=== PATIENT | male | born 1980 | race Caucasian/White ===

== ENCOUNTER → 2018-07-09 | Outpatient (CLI) | payer OTHER ==
--- NOTE | 2018-07-09 14:22 | Diagnostic Imaging Report ---
PROCEDURE: MRI lumbar spine. TECHNIQUE: Multiplanar, multisequence MRI of the lumbar spine was performed without contrast. INDICATION: Low back pain and bilateral leg pain, left greater. Comparison is made with prior MRI of the lumbar spine from 08/15/2015. Straightening of the normal lumbar lordotic curvature is again noted. Minimal retrolisthesis of L5 on S1 is similar to prior study. Vertebral body heights are maintained. No acute compression fracture or geographic marrow lesion is seen. Loss of height and signal intensity to the lumbar disc at L5-S1 is similar to prior study. Decompression laminectomy at this level is also seen. Previously noted sacral cyst, only partially included on this study appears similar. The conus is unremarkable at the L1 level. T12-L1: Central canal and neural foramina are widely patent. L1-L2: There are some degenerative facet changes, however, the central canal and neural foramina appear to be widely patent. L2-L3: Degenerative facet changes are noted. Central canal is widely patent. The neural foramina are patent. L3-L4: Broad-based disc/osteophyte complex produces some flattening of the ventral thecal sac. This does result in some narrowing of the canal with AP dimensions of the sac of approximately 8 mm. The neural foramina are patent. L4-L5: Degenerative facet changes are noted. There is flattening of the ventral thecal sac due to annular bulging. This does create narrowing of the central canal. There is narrowing of bilateral lateral recesses. No significant neural foraminal stenosis is seen. L5-S1: Facet changes are noted. Postsurgical changes of hemilaminectomy are seen. Broad-based disc/osteophyte complex is noted. Degree of disc bulging is significantly improved since prior MRI. There is mild neural foramina narrowing bilaterally and lateral recess narrowing due to endplate osteophytes. Paraspinous tissues are unremarkable. IMPRESSION: Lumbar spondylosis with mild central canal and neuroforaminal narrowing described level by level above. There are postop changes at L5-S1. No acute compression fracture is detected. Dictated by: Dictated on workstation # [id number]
== END ==
LOC: RAD 13:06
PROVIDERS: ATTEND Nurse Practitioner Family
DX: M47.817 Spondylosis without myelopathy or radiculopathy, lumbosacral region (principal); M51.27 Other intervertebral disc displacement, lumbosacral region; M48.07 Spinal stenosis, lumbosacral region; M25.78 Osteophyte, vertebrae; M51.37 Other intervertebral disc degeneration, lumbosacral region; M85.68 Other cyst of bone, other site; Z98.890 Other specified postprocedural states
CPT/HCPCS: 72148

== ENCOUNTER → 2021-10-18 | Outpatient (CLI) | payer BC ==
--- NOTE | 2021-10-18 15:56 | Diagnostic Imaging Report ---
PROCEDURE: MRI lumbar spine. TECHNIQUE: Multiplanar, multisequence MRI of the lumbar spine was performed without contrast. INDICATION: Prior history of back surgery in 2014. Chronic low back pain. EXAMINATION:: Lumbar spine MRI without contrast 10/18/2021. COMPARISON: 07/09/2018 FINDINGS: There is minimal grade 1 retrolisthesis at L5-S1 with remaining alignment preserved. Vertebral body heights maintained. Tip of the conus unremarkable in appearance and location. Again seen are postoperative changes at the L5-S1 level with a persistent cystic lesion posterior to the mid sacrum most consistent with a large Tarlov cyst. This is fairly similar to previous imaging although not completely imaged on prior MRI. It measures 4.6 cm in craniocaudal dimension and 3.5 cm in transverse dimension. L1-L2: There is bilateral facet and ligamentum flavum hypertrophy. There is no central stenosis. There is mild bilateral neural foraminal narrowing. L2-L3: There is bilateral facet and ligamentum flavum hypertrophy. There is no central narrowing. The neural foramina appear patent. L3-L4: There is a mild broad-based bulging disc with bilateral facet and ligamentum flavum hypertrophy. There is secondary mild central stenosis. There is minimal bilateral neural foraminal narrowing. L4-L5: There is a broad-based bulging disc with bilateral facet and ligamentum flavum hypertrophy. Findings cause mild central and left lateral recess narrowing. There is moderate bilateral neural foraminal narrowing. L5-S1: There is intervertebral disc space narrowing and disc desiccation with a broad-based bulging disc. There is bilateral facet hypertrophy. Posterior laminectomy changes noted. No central stenosis. There is mild bilateral neural foraminal narrowing. The visualized intra-abdominal structures demonstrate no acute abnormalities with tiny cystic changes in the kidneys incompletely imaged. The sacroiliac joint spaces appear symmetric and unremarkable. There is a nonspecific T2 hyperintensity within the right aspect of the inferior ilium only included on the coronal T2 fat-saturated sequence through the sacroiliac joints. This is of uncertain etiology. IMPRESSION: 1. Multilevel degenerative changes as described level by level above. 2. 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 3. Nonspecific T2 hyperintensity within the right ilium only included on one sequence. If there is focal pain to the region dedicated pelvic CT may provide further characterization Dictated by: Dictated on workstation # [id number]
== END ==
LOC: RAD 12:45
PROVIDERS: ATTEND Pediatrics
DX: M89.38 Hypertrophy of bone, other site (principal); M48.061 Spinal stenosis, lumbar region without neurogenic claudication; M51.26 Other intervertebral disc displacement, lumbar region; M48.07 Spinal stenosis, lumbosacral region; M51.27 Other intervertebral disc displacement, lumbosacral region; Z98.890 Other specified postprocedural states
CPT/HCPCS: 72148